=== PATIENT | female | born 1985 | race Two or more races ===

== ENCOUNTER 2021-07-24 03:20 | Emergency (ER) | payer MEDICAID ==
[~2021-07-24] VITALS: Ht 170.2 cm; Wt 102.0 kg
[2021-07-24 03:40] VITALS: BP 127/78
[2021-07-24] MEDS ORDERED: ACETAMINOPHEN 325MG TABLET PO ONE (04:45)
[2021-07-24] MEDS ORDERED: HYDR-4001 MT (05:51)
== END 2021-07-24 07:01 | disposition home or self-care (01) ==
LOC: ER 03:20
DX: O99.892 Other specified diseases and conditions complicating childbirth (principal); S52.292A Other fracture of shaft of left ulna, initial encounter for closed fracture; O36.8120 Decreased fetal movements, second trimester, not applicable or unspecified; Z3A.21 21 weeks gestation of pregnancy; W10.8XXA Fall (on) (from) other stairs and steps, initial encounter; Y93.01 Activity, walking, marching and hiking; Y92.89 Other specified places as the place of occurrence of the external cause; O09.522 Supervision of elderly multigravida, second trimester
CPT/HCPCS: 73090; 76815; 81025; 99284